=== PATIENT | female | born 1985 | race Caucasian/White ===

== ENCOUNTER 2024-09-22 15:19 | Emergency (ER) | payer SELFPAY ==
[~2024-09-22 15:19] MED LIST: Iopamidol-370 76% 500 ML MDV (1 ML CHARGE) ONE
[2024-09-22] MEDS ORDERED: Acetaminophen 500 MG TAB ONE (15:59)
[2024-09-22] MEDS ORDERED: Metoclopramide HCl 10 MG (2 mL) VIAL ONE (15:59)
[2024-09-22] MEDS ORDERED: hydrALAZINE 20 MG/ML VIAL ONE ×3 (16:14→17:41)
[2024-09-22] MEDS ORDERED: Ondansetron PF 4 MG/2 ML Vial ONE ×2 (16:14→17:41)
[2024-09-22] MEDS ORDERED: Lorazepam 2 MG/ML VIAL ONE (16:15)
[2024-09-22] MEDS ORDERED: Morphine 4 MG/ML VIAL ONE (16:28)
[2024-09-22] MEDS ORDERED: Dexamethasone 10 MG/ML VIAL ONE (17:57)
[2024-09-22 17:58] LABS: #Basophils 0.05 10x3/uL (0.0-0.2); #Eosinophils Less than 0.03 10x3/uL (0.0-0.7); %Basophils 0.3 % (0.0-1.0); %Eosinophils 0.1 % (0.0-10.0); %Lymphocytes 9.2 % (21.0-51.0); %Monocytes 4.2 % (0.0-10.0); %Neutrophils 85.4 % (42.0-75.0); Hematocrit 37.8 % (36.0-47.0); Mean Corpuscular HGB CONC 34.4 g/dL (32.0-36.0); Mean Corpuscular Hemoglobin 28.7 pg (27.0-31.0); Mean Corpuscular Volume 83.4 fL (78.0-98.0); Mean Platelet Volume 10.8 fL (7.4-10.4); Platelet Count 207 10x3/uL (130-400); RBC Distribution Width 12.8 % (11.5-14.5); Red Blood Cell (RBC) Count 4.53 mill/uL (4.20-5.40)
[2024-09-22] MEDS ORDERED: levETIRAcetam 500 MG (5 mL) VIAL ONE (17:58)
[2024-09-22] MEDS ORDERED: Sodium Chloride 0.9% 250 ML 250 ML ONE (17:58)
[2024-09-22] MEDS ORDERED: niCARdipine 25 MG/10 ML SDV ONE (18:06)
[2024-09-22 18:09] LABS: BHCG - Serum Negative (NEGATIVE); Pregs Control Background? CLEAR/WHITE (CLR/WHITE); Pregs Control Bar Appear? YES (CONTROL BAR)
[2024-09-22 18:27] LABS: Acetaminophen Less than 10 mcg/mL (Less than 10); Alcohol Less than 10.0 mg/dL (Less than 10); Salicylate Less than 8.0 mg/dL (Less than 8.0)
[2024-09-22 18:29] LABS: ALT (SGPT) 46 U/L (8-55); AST (SGOT) 41 U/L (5-34); Albumin 4.1 g/dL (3.5-5.0); Alkaline Phosphatase 60 U/L (40-110); Anion Gap 22 mmol/L (10-20); BUN (Urea Nitrogen) 10 mg/dL (7.0-18.7); Bilirubin, Total 0.4 mg/dL (0.2-1.2); Calc. Creatinine Clearance 0 mL/min (70-130); Carbon Dioxide 16 mmol/L (22-29); Chloride 101 mmol/L (98-107); Estimated GFR 103; Globulin 4.1 g/dL (2.4-3.5); Glucose 146 mg/dL (70-105); Potassium 3.8 mmol/L (3.5-5.1); Protein, Total 8.2 g/dL (6.0-8.3); Sodium 135 mmol/L (136-145)
== END 2024-09-22 19:05 | disposition short-term general hospital (02) ==
LOC: ERS 15:19
DX: I60.9 Nontraumatic subarachnoid hemorrhage, unspecified (principal); Y92.69 Other specified industrial and construction area as the place of occurrence of the external cause
CPT/HCPCS: 70450; 70496; 80053; 80307; 84146; 84703; 85025; 96374; 96375; 96376; J0360; J1100; J1953; J2060; J2272; J2405; J2765; J7050; Q9967